=== PATIENT | male | born 1990 | race Caucasian/White ===

== ENCOUNTER 2017-04-17 11:06 | Emergency (ER) | payer SELFPAY ==
[~2017-04-17] VITALS: Ht 170.2 cm; Wt 114.0 kg
[2017-04-17 14:24] VITALS: BP 123/67
[2017-04-17] MEDS ORDERED: KETOROLAC 60MG/2ML VIAL IM ONE (14:30)
== END 2017-04-17 14:49 | disposition home or self-care (01) ==
LOC: ER 12:06
DX: M25.561 Pain in right knee (principal); F12.10 Cannabis abuse, uncomplicated
CPT/HCPCS: 96372; 99283; J1885; L1830